=== PATIENT | male | born 1985 | race Caucasian/White ===

== ENCOUNTER 2020-08-22 09:49 | Emergency (ER) | payer OTHER, SELFPAY ==
[2020-08-22 10:10] VITALS: BP 133/80; PULSE 71; RESP 20; TEMP 37.2; O2SAT 100
--- NOTE | 2020-08-22 10:43 | ED.URI ---
HPI - URI/Sore Throat General Chief Complaint: Upper Respiratory Infection Stated Complaint: sinus infecction Time Seen by Provider: 08/22/20 10:36 Source: patient and RN notes reviewed Mode of arrival: ambulatory Limitations: no limitations History of Present Illness HPI Narrative: Patient presents today with a 4-day history of dry cough, nasal congestion, sore throat, headache, sinus pressure, rhinorrhea, bilateral ear pressure. Denies fever, loss of taste or smell, nausea, vomiting, diarrhea. Denies history of asthma or COPD. Denies history of seasonal allergies. He has taken no medication for symptoms prior to arrival. He is a non-smoker. He has received his first Covid 19 vaccine and should receive the second 1 tomorrow. Works at the [employer] and states there are 400-500 people coming in daily for jobs. Related Data Home Medications Medication Instructions Recorded Confirmed sertraline 50 mg PO DAILY 08/22/20 08/22/20 Allergies Allergy/AdvReac Type Severity Reaction Status Date / Time Penicillins Allergy Unknown Unknown Verified 08/22/20 10:09 Review of Systems Review of Systems: Narrative: CONSTITUTIONAL: Denies body aches, fever, chills, or sweats. EYES: Denies visual changes, redness, or discharge. ENT: + Congestion, rhinorrhea, sore throat, sinus pressure, bilateral ear pressure CARDIOVASCULAR: Denies chest pain, palpitations, or edema. RESPIRATORY: Denies dyspnea.+ Dry cough GASTROINTESTINAL: Denies abdominal pain, nausea, vomiting, or diarrhea. GENITOURINARY: Denies dysuria or hematuria. SKIN: Denies rash, itching, or wounds. MUSCULOSKELETAL: Denies back pain, joint pain, or myalgia. NEUROLOGIC: Denies numbness, tingling, or weakness. + Headache PSYCH: Denies depression or anxiety. PMFSH Comments At time of signature, I have reviewed and agree with nursing past medical, surgical, social and family history unless otherwise noted. Please see nursing chart for further information. There is no relevant family history pertinent to the presenting complaint Exam Narrative: Exam Narrative: GENERAL: Mildly ill-appearing, well-nourished, and in no acute distress. HEAD: Normocephalic, atraumatic. EYES: EOMI. No redness or drainage. Conjunctivae normal. ENT: Mucous membranes pink and moist. Nares congested. No rhinorrhea. TMs normal bilaterally. Throat mildly erythematous and edematous without exudate. Uvula midline. NECK: Normal AROM. Supple. No lymphadenopathy. CHEST: No respiratory distress. Clear to auscultation. HEART: Regular rate and rhythm. No murmur appreciated. Normal peripheral pulses. EXTREMITIES: Normal range of motion. No edema. SKIN: Warm, dry, no rash. Capillary refill normal. Normal skin turgor. NEURO: No focal deficits. Alert and oriented x3. Gait steady. PSYCH: Normal affect. No signs of depression or anxiety. Course Vital Signs Vital signs: Vital Signs Temperature 98.9 F 08/22/20 10:10 Pulse Rate 71 08/22/20 10:10 Respiratory Rate 20 08/22/20 10:10 Blood Pressure 133/80 08/22/20 10:10 Pulse Oximetry 100 08/22/20 10:10 Temperature 98.9 F 08/22/20 10:10 Pulse Rate 71 08/22/20 10:10 Respiratory Rate 20 08/22/20 10:10 Blood Pressure 133/80 08/22/20 10:10 Pulse Oximetry 100 08/22/20 10:10 Reviewed. Pt has been instructed to follow up with his PCP regarding his elevated blood pressure today. MDM - URI/Sore Throat Differential Diagnosis Differential diagnosis: Likely upper respiratory infection, otitis media, sinusitis, viral infection, bronchitis, pharyngitis and other (Strep throat, COVID-19, tonsillitis, AOM) Lab Data Attestation: I reviewed the patient's lab results. Lab results narrative: Rapid COVID-19 test negative Labs: Lab Results 08/22/20 Range/Units Unknown POC SARS CoV-2 Ag Negative (Negative) Strep Screen Presumptive Negative *(Reference Range: Negative)*
== END 2020-08-22 11:18 | disposition home or self-care (01) ==
PROVIDERS: Emergency Provider Nurse Practitioner; PCP Internal Medicine
DX: J06.9 Acute upper respiratory infection, unspecified (principal); Z20.822 Contact with and (suspected) exposure to COVID-19
CPT/HCPCS: 87081; 87426; 87880; 99203; C9803; G0463

== ENCOUNTER 2020-12-31 08:32 | Emergency (ER) | payer OTHER, SELFPAY ==
[2020-12-31 08:40] VITALS: BP 139/83; PULSE 60; RESP 20; TEMP 36.9; O2SAT 98
--- NOTE | 2020-12-31 09:04 | ED.URI ---
HPI - URI/Sore Throat General Chief Complaint: Upper Respiratory Infection Stated Complaint: stuffy and headache Time Seen by Provider: 12/31/20 09:04 History of Present Illness HPI Narrative: sore throat and nasal congestion for one week. no exposure to covid. did use flonas with releif but has not used in some time. no shortness of breath no cough and no chest pain. Related Data Home Medications Medication Instructions Recorded Confirmed sertraline 50 mg PO DAILY 08/22/20 12/31/20 Allergies Allergy/AdvReac Type Severity Reaction Status Date / Time Penicillins Allergy Unknown Unknown Verified 12/31/20 09:11 Review of Systems Review of Systems: CONSTITUTIONAL: Denies chills, or sweats. Reports fever and generalized body aches EYES: Denies visual changes, redness, or discharge. ENT: Denies otalgia. Reports nasal congestion runny nose and sore throat CARDIOVASCULAR: Denies chest pain, palpitations, or edema. RESPIRATORY: Denies dyspnea. Reports occasional cough GASTROINTESTINAL: Denies abdominal pain, nausea, vomiting, or diarrhea. GENITOURINARY: Denies dysuria or hematuria. SKIN: Denies rash or itching. MUSCULOSKELETAL: Denies back pain, joint pain, or myalgia. Reports generalized body aches NEUROLOGIC: Denies headache, numbness, or weakness. PSYCHIATRIC: Denies anxiety or depression. PMFSH Comments At time of signature, agree with nursing past medical, surgical, social and family history. There is no relevant family history pertinent to the presenting complaint Exam Narrative: The patient is a well-developed, well-nourished in no acute distress. SKIN: Skin is warm and dry without erythema, swelling or exudate. There is good turgor. No tenting. HEAD: Atraumatic. Normocephalic. No temporal or scalp tenderness. EYES: Moist and bright. Sclera and conjunctivae normal. No discharge. PERRLA. Extraocular motions intact. Gross visual acuity intact. EARS: Pinna is normal shape and contour. Clear external auditory canals. TM pearly landeros with good cone of light, no erythema or suppuration. Bilateral cerumen noted no gross hearing deficit. NOSE: pink, moist mucosa with good air movement. Clear rhinorrhea without nasal flaring. Septum midline. Mouth: moist mucous membranes. THROAT; mild erythema noted to posterior oropharynx with moderate postnasal drainage. Without exudate or ulceration.. Uvula midline. Normal movement of soft palate. NECK: Supple and nontender with full range of motion without discomfort. No meningeal signs. LUNGS: Equal and bilateral breath sounds without wheezes, rales or rhonchi. CHEST: The chest wall is without retractions or use of accessory muscles. HEART: Has a regular rate and rhythm without murmur, gallops, click or rub. ABDOMEN: Soft, nontender with positive active bowel sounds. No rebound tenderness. EXTREMITIES: Without cyanosis, clubbing or edema. Equal 2+ distal pulses and 2 second capillary refill noted. NEUROLOGIC: alert, active, . The patient moves all extremities with normal muscle strength. Normal muscle tone is noted. Normal coordination is noted. NO focal neurological findings noted. Course Vital Signs Vital signs: Vital Signs Temperature 36.9 C 12/31/20 08:40 Pulse Rate 60 12/31/20 08:40 Respiratory Rate 20 12/31/20 08:40 Blood Pressure 139/83 12/31/20 08:40 Pulse Oximetry 98 12/31/20 08:40 Temperature 36.9 C 12/31/20 08:40 Pulse Rate 60 12/31/20 08:40 Respiratory Rate 20 12/31/20 08:40 Blood Pressure 139/83 12/31/20 08:40 Pulse Oximetry 98 12/31/20 08:40 Please JULIO CESAR schedule a followup visit with your personal physician for further evaluation and treatment. Including recheck and discussion of your blood pressure. If your symptoms persist, change or worsen significantly before you can contact your personal physician then please, without delay, go to the emergency department for further evaluation Addressed elevated BP today. Today's blood pressure h
== END 2020-12-31 09:15 | disposition home or self-care (01) ==
PROVIDERS: Emergency Provider Nurse Practitioner Family; PCP Internal Medicine
DX: J06.9 Acute upper respiratory infection, unspecified (principal); Z20.822 Contact with and (suspected) exposure to COVID-19; F41.9 Anxiety disorder, unspecified
CPT/HCPCS: 87426; 99213; C9803; G0463

== ENCOUNTER 2021-06-25 08:31 | Emergency (ER) | payer OTHER, SELFPAY ==
--- NOTE | 2021-06-25 08:38 | ED.URI ---
HPI - URI/Sore Throat General Chief Complaint: Upper Respiratory Infection Stated Complaint: Sinus Pain Time Seen by Provider: 06/25/21 09:23 Source: patient and RN notes reviewed Mode of arrival: ambulatory Limitations: no limitations History of Present Illness HPI Narrative: 35-year-old male presents with concern for sinus congestion, runny nose, headache. Reports exposure to Covid. Reports has been taking ibuprofen. Denies cough or shortness of breath. MD elicited complaint: cough and sore throat Related Data Home Medications Medication Instructions Recorded Confirmed sertraline 50 mg PO DAILY 08/22/20 12/31/20 Allergies Allergy/AdvReac Type Severity Reaction Status Date / Time Penicillins Allergy Unknown Unknown Verified 06/25/21 09:23 Review of Systems Review of Systems: CONSTITUTIONAL: Denies malaise, chills, sweats, or fever. EYES: Denies visual changes, redness, or discharge. ENT: Reports rhinorrhea, congestion. Denies sinus pain, otalgia and sore throat. CARDIOVASCULAR: Denies chest pain, palpitations, or edema. RESPIRATORY: Denies cough. Denies dyspnea. GASTROINTESTINAL: Denies abdominal pain, nausea, vomiting, diarrhea SKIN: Denies rash or itching. MUSCULOSKELETAL: Denies myalgia. NEUROLOGIC: Reports headache. All systems reviewed & are unremarkable except as noted in HPI and below PMFSH Comments At time of signature, agree with nursing past medical, surgical, social and family history. There is no relevant family history pertinent to the presenting complaint Exam Narrative: GENERAL: Well-appearing, well-nourished, and in no acute distress. HEAD: Normocephalic EYES: PERRLA, conjunctivae clear ENT: Nares clear, clear discharge. Mucous membranes moist. TM pearly miller with sharp light reflex bilaterally; no tragal tenderness. Oropharynx not erythematous without lesions. Tonsils not enlarged and without exudate, no drooling, no hoarseness, no trismus, uvula midline. NECK: Supple. No lymphadenopathy CHEST: Clear to auscultation, breath sounds equal. No wheezing, rhonchi, rales, or stridor. No respiratory distress, speaks in full sentences. HEART: Regular rate and rhythm. No murmur heard. SKIN: Warm, dry, no rash. NEURO: Alert and oriented x3. PSYCH: Normal mood and affect Course Course Emergency Course: Patient is aware of diagnosis, understands and agrees to treatment plan. Anticipatory guidance given. Patient agrees to follow-up as directed and is aware of reasons to seek care at the emergency department. Portions of this record may have been created with voice recognition software Level of Care: Express Care Visit Vital Signs Vital signs: Vital Signs Temperature 98.8 F 06/25/21 08:44 Pulse Rate 52 L 06/25/21 08:44 Respiratory Rate 20 06/25/21 08:44 Blood Pressure 132/81 06/25/21 08:44 Pulse Oximetry 100 06/25/21 08:44 Temperature 98.8 F 06/25/21 08:44 Pulse Rate 52 L 06/25/21 08:44 Respiratory Rate 20 06/25/21 08:44 Blood Pressure 132/81 06/25/21 08:44 Pulse Oximetry 100 06/25/21 08:44 Reviewed. MDM - URI/Sore Throat MDM Narrative Medical decision making narrative: Differential diagnosis considered: Mcdaniels virus, strep pharyngitis, allergic rhinitis, upper respiratory tract infection, sinusitis, rhinosinusitis, nasopharyngitis. viral pharyngitis, otitis media, otitis externa, pneumonia, bronchitis, viral cough syndrome, viral syndrome, and influenza. Exam findings show no acute concerns or changes; patient is non-toxic appearing and is in no distress. Patient is appropriate for outpatient treatment and follow-up. Lab Data Attestation: I reviewed the patient's lab results. Labs: Lab Results 06/25/21 Range/Units 09:17 POC SARS CoV-2 Ag Negative (Negative) Critical Care Time Critical Care Time Critical Care Time: No Discharge Plan Discharge Clinical Impression: Person under investigation for COVID-19 Upper respiratory infection Quali
[2021-06-25 08:44] VITALS: BP 132/81; PULSE 52; RESP 20; TEMP 37.1; O2SAT 100
[2021-06-26 19:36] LABS: SARS-CoV-2 RNA PCR Positive
== END 2021-06-25 09:45 | disposition home or self-care (01) ==
PROVIDERS: Emergency Provider Nurse Practitioner; PCP Internal Medicine
DX: U07.1 COVID-19 (principal); F41.9 Anxiety disorder, unspecified
CPT/HCPCS: 87426; 99213; C9803; G0463; U0003; U0005

== ENCOUNTER 2023-02-04 08:01 | Emergency (ER) | payer OTHER, SELFPAY ==
[2023-02-04 08:06] VITALS: BP 135/81; PULSE 58; RESP 20; TEMP 36.8; O2SAT 96
--- NOTE | 2023-02-04 08:06 | ED.URI ---
HPI - URI/Sore Throat General Chief Complaint: Upper Respiratory Infection Stated Complaint: sinus Time Seen by Provider: 02/04/23 08:10 Source: patient Mode of arrival: ambulatory Limitations: no limitations History of Present Illness HPI Narrative: Vipul is a 37-year-old male patient presenting to the clinic today with complaints of possible sinus infection. He reports he is having nasal congestion with yellow and green nasal discharge sinus pressure, and productive cough. Reports the symptoms have been going on for 10 days. No known fever or chills. MD elicited complaint: cough, rhinorrhea, nasal congestion and sinus pain Related Data Allergies Allergy/AdvReac Type Severity Reaction Status Date / Time Penicillins Allergy Unknown Unknown Verified 02/04/23 08:11 Review of Systems Review of Systems: Pertinent positives per HPI. Patient denies any fever, chills, rash, headache, visual changes, dizziness, cough, shortness of breath, chest pain, palpitations, nausea, vomiting, diarrhea, constipation, abdominal pain, or any urinary issues. PMFSH Comments At the time of my signature, I reviewed and agree with the nursing past medical, surgical, social, and family history. There is no relevant family history pertinent to the patient complaint. Exam Narrative: General: Well-developed, well nourished, in no apparent distress Head: Normocephalic, atraumatic Eyes: Pupils equally round and reactive to light bilaterally, EOM intact, sclera and conjunctive clear, no discharge, lids normal Ears: TMs intact and clear, ear canals clear, no drainage, grossly hearing normal. Nose: Nares patent, yellow nasal discharge, severe inflammation, maxillary sinus tenderness. Mouth: Oral pharynx without lesions or masses, good dentition, MMM.PND Neck: Supple, trachea midline, no enlargement of anterior or posterior cervical nodes, no thyroid masses or goiter palpable. Cardio: Regular rate and rhythm, s1 and s2 normal, no murmur appreciated. Resp: Clear to auscultation bilaterally, no rhonchi, rales, wheezing or rubs Course Course Emergency Course: Portions of this record may have been created with voice recognition software. Level of Care: Express Care Visit Vital Signs Vital signs: Vital signs reviewed MDM - URI/Sore Throat MDM Narrative Medical decision making narrative: At the time of visit patient is resting comfortably on the exam table. I suspect patient has acute bacterial rhinosinusitis. Prescription for doxycycline and prednisone was sent to the pharmacy. Supportive measures were discussed with the patient he voiced understanding discharge instructions agrees to treatment Differential Diagnosis Differential diagnosis: Likely upper respiratory infection, otitis media, sinusitis, viral infection, bronchitis, influenza, pharyngitis and other (COVID) Discharge Plan Discharge Clinical Impression: Acute bacterial rhinosinusitis Patient Disposition: Home, Self-Care Condition: Stable Instructions: Antibiotic Form, Rhinosinusitis (ED) Additional Instructions: Take prescription medications only as prescribed-prednisone and doxycycline Increase fluids and stay well hydrated Tylenol/motrin for pain/fever Flonase and OTC antihistamines as directed Vicks vapor rub to open sinuses Sinus rinses for congestion Cepacol spray, cough drops, throat lozenges, warm tea with honey/lemon, gargle salt water to soothe throat BRAT diet for diarrhea Clear liquids x 24 hours then advance as tolerated for nausea/vomiting Go to the ED if you develop a worsening in your condition- high fever not controlled by Tylenol or Motrin, dehydration, weakness, lethargy, shortness of breath, or chest pain. Follow up with your PCP in 3-5 days if symptoms persist. Prescriptions: New prednisone 20 mg tablet 40 mg PO DAILY 5 Days Qty: 10 0RF doxycycline hyclate 100 mg tablet 100 mg PO BID 10 Days Qty: 20 0RF Follo
== END 2023-02-04 08:19 | disposition home or self-care (01) ==
PROVIDERS: Emergency Provider Nurse Practitioner Family; PCP Physician Assistant
DX: J01.90 Acute sinusitis, unspecified (principal)
CPT/HCPCS: 99213; G0463

== ENCOUNTER 2024-04-14 08:10 | Emergency (ER) | payer OTHER, SELFPAY ==
--- NOTE | 2024-04-14 08:17 | ED_ITS ---
HPI - Ear Problem General Chief complaint: Ear Stated complaint: Ear Pain/Congestion Time Seen by Provider: 04/14/24 08:18 Source: patient, RN notes reviewed and old records reviewed Mode of arrival: ambulatory Limitations: no limitations History of Present Illness HPI Narrative: 38-year-old male to Express Care with complaint of right ear pain since Thursday. Patient reports treating home with Mucinex. Patient denies fever or any other sick symptoms. Patient resting comfortably in exam room in no acute distress. Related Data Allergies Allergy/AdvReac Type Severity Reaction Status Date / Time Penicillins Allergy Unknown Unknown Verified 02/04/23 08:11 Review of Systems Review of Systems: All systems reviewed & are unremarkable except as noted in HPI and below Constitutional: Constitutional: Reports no additional constitutional complaints Eyes: Eyes: Reports no additional eye complaints ENT: Reports as per HPI and Reports otalgia ( right) Cardiovascular: Cardiovascular: Reports no additional cardiovascular complaints, Denies chest pain and Denies dyspnea Respiratory: Respiratory: Reports no additional respiratory complaints, Denies cough and Denies dyspnea Musculoskeletal: Musculoskeletal: Reports no additional musculoskeletal complaints Neurologic: Reports system reviewed and no additional complaints, except as documented Psychiatric: Psychiatric: Reports no additional psychiatric complaints PMFSH Comments At the time of my signature, I reviewed and agree with the nursing past medical, surgical, social, and family history. There is no relevant family history pertinent to the patient complaint. Exam Const: General: cooperative, healthy appearing, comfortable, no acute distress, alert and well nourished Nutritional Appearance: well nourished Orientation/consciousness: patient oriented x3 Limitations: no limitations HENMT: Head: normal to inspection Ears: external ears normal, Abnormal EAC present excessive cerumen bilateral and erythema on the right and TM abnormal dull on the right, erythematous on the right and with fluid behind the TM on the right Face/Nose/Sinus: Normal external nose present, Normal nares present, normal facial exam, No erythema and No edema Face and sinus: normal facial exam, no erythema and no edema Mouth: Yes Normal oral and palatal mucosa present Throat: postnasal drainage Eyes: General: appearance normal, both eyes and all related structures Neck: Neck: normal visual inspection, full ROM and no meningeal signs Lymphatic: no lymphadenopathy noted and no lymphedema noted Chest: Chest palpation & inspection: normal inspection of the chest Resp: Effort & Inspection: normal respiratory effort and able to speak in complete sentences Cardio: Jugular venous distension: no JVD Rate: regular rate Back/Spine/Pelvis: Cervical Spine: cervical ROM normal Skin: General skin exam: normal color, no rashes or lesions noted and turgor normal Neuro: General: patient oriented x3, gait normal, moves all extremities and no meningeal signs Speech: normal speech Gait exam (Neuro): Normal gait present Extrem: General: normal to inspection, full ROM and capillary refill normal Psych: Appearance: grossly normal and well kempt Course Course Emergency Course: Some parts of this dictation were generated by voice recognition software and may contain typographical and/or grammatical inaccuracies. Level of Care: Express Care Visit Vital Signs Vital signs: Vital Signs Temperature 36.7 C 04/14/24 08:23 Pulse Rate 65 04/14/24 08:23 Respiratory Rate 18 04/14/24 08:23 Blood Pressure 114/71 04/14/24 08:23 Pulse Oximetry 98 04/14/24 08:23 Oxygen Delivery Room Air 04/14/24 08:23 Temperature 36.7 C 04/14/24 08:23 Pulse Rate 65 04/14/24 08:23 Respiratory Rate 18 04/14/24 08:23 Blood Pressure 114/71 04/14/24 08:23 Pulse Oximetry 98 04/14/24 08:23 Oxygen Delivery Room Air 04/14/24 08:23 reviewed Medical Decision Making MDM Narrative Medical decision making narrative: 38-year-old male to Express Care with complaint of right ear pain since Thursday. Patient reports treating home with Mucinex. Patient denies fever or any other sick symptoms. Patient resting comfortably in exam room in no acute distress. Patient is sitting comfortably in exam room nontoxic in appearance. on exam, excessive bilateral wax present. Right TM erythematous, bulging fluid. Consistent with otitis media. Patient appropriate for outpatient treatment and follow-up. Discharge instructions reviewed with patient, as well as provided in writing per nursing staff. The instructions also include specific and strict return/GO TO THE ER as well as f/u information. All questions have been answered, and the patient deny any further questions with discharge and discharge plan. Some parts of this dictation were generated by voice recognition software and m ay contain typographical and/or grammatical inaccuracies. Differential Diagnosis Differential Diagnosis: Impacted cerumen, otitis media, otitis externa, ruptured tympanic membrane, upper respiratory infection, sinusitis, foreign body ear Vital Signs Vital Signs: Vital Signs Temperature 36.7 C 04/14/24 08:23 Pulse Rate 65 04/14/24 08:23 Respiratory Rate 18 04/14/24 08:23 Blood Pressure 114/71 04/14/24 08:23 Pulse Oximetry 98 04/14/24 08:23 Oxygen Delivery Room Air 04/14/24 08:23 Temperature 36.7 C 04/14/24 08:23 Pulse Rate 65 04/14/24 08:23 Respiratory Rate 18 04/14/24 08:23 Blood Pressure 114/71 04/14/24 08:23 Pulse Oximetry 98 04/14/24 08:23 Oxygen Delivery Room Air 04/14/24 08:23 Discharge Plan Discharge Clinical Impression: Acute right otitis media, Excessive cerumen in both ear canals Patient Disposition: Home, Self-Care Condition: Stable Instructions: Antibiotic Form Additional Instructions: as discussed, please finish entire course of antibiotic treatment. Please use Debrox in both ears after completion antibiotic treatment -Alternate Tylenol and Motrin per package directions for fever or pain. -Antihistamine medication such as Benadryl at night and Zyrtec/Claritin/Aicha during the day can help improve symptoms. -Use Flonase twice a day for 5 days then daily to help reduce the inflammation and dry up your sinuses. -You can also use Sudafed or Mucinex. Be sure to drink plenty of water with these medications at least 8 ounces with every dose and it is important to drink 8 to 10 glasses of water per day. Water is a natural decongestant -Eat and drink things that are easy to swallow, like tea or soup, or popsicles. -Oral rinses such as: Salt water gargles and/or may use topical anesthetic (eg. Chloraseptic spray) or lozenges to relieve dryness or throat pain). -Frequent hand washing or hand geopolitics teacher is one of the best ways to prevent spread of infection. -Using a vaporizer or humidifier at night will also help thin secretions and help with coughing up phlegm. -Follow up with primary care provider in 2-3 days if condition is not improving; or seek ER visit if you have trouble breathing, cannot drink enough fluids, have muffled voice, difficulty opening your mouth, or severe swelling. Prescriptions: New doxycycline monohydrate 100 mg tablet 100 mg PO BID 10 Days Qty: 20 0RF Follow-up/Referrals: Ede,AARON Segura [Primary Care Provider] - Stand Alone Forms: Work/School Release IP
[2024-04-14 08:23] VITALS: BP 114/71; PULSE 65; RESP 18; TEMP 36.7; O2SAT 98
== END 2024-04-14 08:53 | disposition home or self-care (01) ==
PROVIDERS: Emergency Provider Nurse Practitioner Family; PCP Physician Assistant
DX: H66.91 Otitis media, unspecified, right ear (principal); H61.23 Impacted cerumen, bilateral
CPT/HCPCS: 99213; G0463